=== PATIENT | male | born 1960 | race Caucasian/White ===

== ENCOUNTER 2018-09-09 12:32 | Emergency (ER) | payer MEDICAID, OTHER ==
[~2018-09-09] VITALS: Wt 62.4 kg
[2018-09-09] MEDS ORDERED: FAMOTIDINE 20 MG TAB PO STA (16:14)
[2018-09-09] MEDS ORDERED: METOCLOPRAMIDE 10 MG TAB PO ONE (16:30)
[2018-09-09] MEDS ORDERED: SOD CHLORIDE 0.9% 100 ML ONE (18:10)
[2018-09-09] MEDS ORDERED: IOHEXOL 300MG/ML 150 ML BTL ONE (18:10)
[2018-09-09] MEDS ORDERED: FAMO-96 PO (19:44)
[2018-09-09] MEDS ORDERED: METO10TA92 PO (19:44)
[2018-09-09 19:50] VITALS: BP 142/92; PULSE 94; RESP 20
--- NOTE | 2018-09-09 19:54 | ERD ---
ER Documentation Chief Complaint Chief Complaint upper abd pain x 3 days; denies vomiting/diarrhea HPI 58-year-old male presenting with upper abdominal pain for the past 3 days with associated nausea and diarrhea that is nonbloody without melena. He has no associated fevers or chills. He has had hiccups that are happening at night. No vomiting. No weight loss. No recent travel. Pain is aching, cramping, intermittent, nonradiating with no exacerbating factors. Alleviated with eating. ROS All systems reviewed and are negative except as per history of present illness. Medications Home Meds Active Scripts Famotidine* (Pepcid*) 20 Mg Tablet, 20 MG PO DAILY, #14 TAB Prov:PERLITA PINA MD 09/09/18 Metoclopramide* (Reglan*) 10 Mg Tablet, 10 MG PO Q6 PRN for NAUSEA AND/OR VOMITING, #10 TAB Prov:PERLITA PINA MD 09/09/18 Allergies Allergies: Coded Allergies: No Known Allergy (Unverified , 09/09/18) PMhx/Soc Medical and Surgical Hx: pt denies Medical Hx History of Surgery: Yes (leg sx) Anesthesia Reaction: No Hx Neurological Disorder: No Hx Respiratory Disorders: No Hx Cardiac Disorders: Yes (htn) Hx Psychiatric Problems: No Hx Miscellaneous Medical Probl: No Hx Alcohol Use: No Hx Substance Use: No Hx Tobacco Use: No Smoking Status: Never smoker FmHx Family History: No diabetes Physical Exam Vitals Vital Signs Date Temp Pulse Resp B/P (MAP) Pulse Ox O2 O2 Flow FiO2 Time Delivery Rate 09/09/18 98.8 88 20 130/81 98 Room Air 16:31 (97) 09/09/18 98.8 108 20 126/83 98 12:36 (97) Physical Exam Const: No acute distress Head: Atraumatic Eyes: Normal Conjunctiva ENT: Normal External Ears, Nose and Mouth. Neck: Full range of motion. No meningismus. Resp: Clear to auscultation bilaterally Cardio: Regular rate and rhythm, no murmurs Abd: Soft, mild epigastric tenderness, non distended. Normal bowel sounds Skin: No petechiae or rashes Back: No midline or flank tenderness Ext: No cyanosis, or edema Neur: Awake and alert Psych: Normal Mood and Affect Result Diagram: 09/09/18 1614 09/09/18 1614 Results 24 hrs Laboratory Tests Test 09/09/18 16:14 White Blood Count 8.3 10^3/ul Red Blood Count 4.14 10^6/ul Hemoglobin 12.3 g/dl Hematocrit 36.3 % Mean Corpuscular Volume 87.7 fl Mean Corpuscular Hemoglobin 29.7 pg Mean Corpuscular Hemoglobin Concent 33.9 g/dl Red Cell Distribution Width 12.7 % Platelet Count 129 10^3/UL Mean Platelet Volume 10.5 fl Immature Granulocytes % 0.400 % Neutrophils % 71.8 % Lymphocytes % 17.3 % Monocytes % 8.0 % Eosinophils % 2.3 % Basophils % 0.2 % Nucleated Red Blood Cells % 0.0 /100WBC Immature Granulocytes # 0.030 10^3/ul Neutrophils # 5.9 10^3/ul Lymphocytes # 1.4 10^3/ul Monocytes # 0.7 10^3/ul Eosinophils # 0.2 10^3/ul Basophils # 0.0 10^3/ul Nucleated Red Blood Cells # 0.0 10^3/ul Sodium Level 135 mmol/L Potassium Level 3.5 mmol/L Chloride Level 97 mmol/L Carbon Dioxide Level 29 mmol/L Anion Gap 9 Blood Urea Nitrogen 12 mg/dl Creatinine 0.62 mg/dl Est Glomerular Filtrat Rate mL/min > 60 mL/min Glucose Level 173 mg/dl Calcium Level 9.6 mg/dl Total Bilirubin 0.6 mg/dl Direct Bilirubin 0.00 mg/dl Indirect Bilirubin 0.6 mg/dl Aspartate Amino Transf (AST/SGOT) 354 IU/L Alanine Aminotransferase (ALT/SGPT) 200 IU/L Alkaline Phosphatase 85 IU/L Total Protein 6.9 g/dl Albumin 4.3 g/dl Globulin 2.60 g/dl Albumin/Globulin Ratio 1.65 Lipase 1650 U/L Current Medications Medications Dose Sig/Orion Start Time Status Last (Trade) Ordered Route PRN Stop Time Admin Dose Reason Admin Famotidine 20 mg ONCE STAT 09/09/18 DC 09/09/18 (Pepcid) PO 16:14 09/09/18 16:34 16:17 10 mg ONCE ONCE 09/09/18 DC 09/09/18 Metoclopramid PO 16:30 09/09/18 16:34 e HCl 16:31 (Reglan) Iohexol 150 ml STK-MED 09/09/18 DC (Omnipaque ONCE .ROUTE 18:10 09/09/18 300mg/ ml) 18:11 Sodium 100 ml @ ud STK-MED 09/09/18 DC Chloride ONCE .ROUTE 18:10 09/09/18 18:11 IV Flush 10 ml STK-MED 09/09/18 DC (NS 10 ml) ONCE .ROUTE 18:10 09/09/18 18:11 Procedures/MDM EMERGENT LABS AND DIAGNOSTIC STUDIES: Lab Results above were reviewed and interpreted by me. CBC: Mild thrombocytopenia. No clinically significant transaminitis with no anemia or evidence of infection CMP: Elevation of alk phos or bilirubin. No evidence of clinically significant electrolyte abnormality, acidosis, renal failure, hypoglycemia Lipase: Elevated, consistent with pancreatitis Radiology Results as interpreted by Radiology below were reviewed by Ayo N. Gary lopez MD: Ultrasound gallbladder: IMPRESSION: Hepatomegaly with diffuse infiltration of the liver.. Moderately distended gallbladder with no evidence of gallstones. CT abdomen and pelvis shows hepatomegaly with distended gallbladder. No evidence of stones. No evidence of pancreatic inflammation or mass. No other acute abnormalities Initial Nursing notes reviewed. Previous Medical Records requested via the Electronic Health Record. EMERGENCY DEPARTMENT COURSE / MEDICAL DECISION MAKING: patient is presenting with mainly complaints of hiccups with some associated abdominal pain and diarrhea. Vitals are stab unremarkable. He is afebrile with no signs of surgical abdomen on exam. Basic labs were done showing transami nitis and evidence of pancreatitis although the patient is not very symptomatic. He was treated with IV fluids and Pepcid while here as well as antiemetics with improvement of his symptoms. Ultrasound of the gallbladder was done showing no evidence of cholecystitis or biliary obstruction. CT scan did not show evidence of pancreatic tumor, inflammation, or other significant abnormalities other than distended gallbladder and hepatomegaly. I discussed his results with him. Since he is tolerating fluids by mouth and is not in any pain at this time, I feel the patient is stable for discharge with continued outpatient follow-up. I stressed to him the importance of following up with his primary care doctor as he will need a referral for further testing as the etiology is his transaminitis and pancreatitis is unclear at this time. Strict return precautions discussed. Car Whacker was used and the patient states that he understands discharge instructions. Patient's blood pressure was elevated (>120/80) but appears stable without evidence of hypertensive emergency or urgency. The patient was counseled about the risks of hypertension and urged to pursue outpatient monitoring and therapy within a week with their primary care physician. Departure Diagnosis: Primary Impression: Pancreatitis Chronicity: acute Pancreatitis type: unspecified pancreatitis type Acute pancreatitis complication: no infection or necrosis Qualified Codes: K85.90 - Acute pancreatitis without necrosis or infection, unspecified Additional Impression: Transaminitis Condition: Stable Patient Instructions: Pancreatitis [facility] Usted se temple hecho un examen mdico de control que le indica que no est en willie condicin que requiera tratamiento urgente en el Departamento de Emergencia. Un estudio ms profundo y el tratamiento de wilde condicin pueden esperar sin ningn riesgo hasta que usted sea atendida/o en el consultorio de wilde mdico o willie clnica. Es responsabilidad suya arreglar willie reuben para el seguimiento del jeremiah. MANEJO DE CONDICIONES NO URGENTES EN EL FUTURO 1) Si usted tiene un mdico de atencin primaria: Usted debera llamar a wilde mdico de atencin primaria antes de venir al departamento de emergencia. Despus de las horas de consultorio, wilde doctor o wilde asociado/a est disponible por telfono. El mdico o enfermero de gonzález en el servicio telefnico puede asesorarle por linnea medio para atender el problema, o jeremiah contrario se puede programar willie reuben. 2) Si usted no tiene un mdico de atencin primaria: Llame al mdico o clnica de referencia que aparece abajo sarkis las horas de consultorio para hacer willie reuben para que le vean. CLINICAS: [facility] [phone] [facility] [phone] [place] [phone] [place] [id number] [phone] [place] [address] [phone] [facility] [phone] [address] [facility]. [facility] () Usted se temple hecho un examen mdico de control que le indica que no est en willie condicin que requiera tratamiento urgente en el Departamento de Emergencia. Un estudio ms profundo y el tratamiento de wilde condicin pueden esperar sin ningn riesgo hasta que usted sea atendida/o en el consultorio de wilde mdico o willie clnica. Es responsabilidad suya arreglar willie reuben para el seguimiento del jeremiah. MANEJO DE CONDICIONES NO URGENTES EN EL FUTURO 1) Si usted tiene un mdico de atencin primaria: Usted debera llamar a wilde mdico de atencin primaria antes de venir al departamento de emergencia. Despus de las horas de consultorio, wilde doctor o wilde asociado/a est disponible por telfono. El mdico o enfermero de gonzález en el servicio telefnico puede asesorarle por linnea medio para atender el problema, o jeremiah contrario se puede programar willie reuben. 2) Si usted no tiene un mdico de atencin primaria: Llame al mdico o condado institucions de referencia que aparece abajo sarkis las horas de consultorio para hacer willie reuben para que le vean. SI USTED NO PUEDE PAGAR PARA JOCELYN UN MEDICO puede ir a: [facility] [address] [place] [address] [facility] [address] [place] [address] [facility] [address] [place] [address] [facility] [address] [place], [place] [id number] Additional Instructions: Regresa si lucía sintomas estan empeorando. Catracho willie reuben con wilde medico primario en 1 semana, o ocampo pronto se posible. Necesitas otros examines para estudios abnormal del ligado y pancreas. PERLITA PINA MD Sep 09, 2018 19:54
== END 2018-09-09 20:05 | disposition home or self-care (01) ==
LOC: E/R 12:32
DX: K85.90 Acute pancreatitis without necrosis or infection, unspecified (principal); R74.0 Nonspecific elevation of levels of transaminase and lactic acid dehydrogenase [LDH]; I10 Essential (primary) hypertension
CPT/HCPCS: 36415; 74177; 76705; 80053; 83690; 85025; Q9967; Z7502; Z7610